=== PATIENT | male | born 1960 | race Caucasian/White ===

== ENCOUNTER 2024-02-03 08:02 | Observation (INO) | payer OTHER ==
[~2024-02-03] VITALS: Ht 177.8 cm; Wt 65.8 kg
[~2024-02-03 08:02] MED LIST: AMOX1TAB16 PO; METR-172 PO
[2024-02-03 11:45] VITALS: BP 136/96; PULSE 81; RESP 20
[2024-02-03 13:12] VITALS: O2SAT 96
[2024-02-03] MEDS: THIAMINE HCL 100 MG, FOLIC ACID 1 MG, M.V.I. IV [ADULT] 10 ML in 0.9%NACL 1000ML 1,000 ML IV SCH (13:30)
[2024-02-03] MEDS ORDERED: PHARMACY COMMUNICATION MISC PRN (13:30)
[2024-02-03] MEDS ORDERED: LORAZEPAM 2 MG/ML 1 ML VIAL IVP PRN (13:30)
[2024-02-03 16:00] VITALS: BP 135/99; PULSE 94; RESP 18
[2024-02-03 19:15] VITALS: O2SAT 96
[2024-02-03 20:00] VITALS: BP 123/81; PULSE 88; RESP 18
[2024-02-03] MEDS: CHLORDIAZEPOXIDE HCL 25 MG CAP PO PRN (21:11)
[2024-02-04] VITALS (21 sets, daily range): BP systolic 98–146; BP diastolic 63–93; PULSE 75–95; RESP 14–20; O2SAT 96
[2024-02-04 02:57] LABS: BASOPHILS # (AUTO) 0.15 K/uL (0.00-0.20); BASOPHILS % (AUTO) 1.4 % (0.0-5.0); EOSINOPHILS # (AUTO) 0.12 K/uL (0.00-0.70); EOSINOPHILS % (AUTO) 1.1 % (0.0-8.0); HEMATOCRIT 32.9 % (42-54); IMMATURE GRANULOCYTE ABSOLUTE 0.05 K/uL (0-1); LYMPHOCYTES # (AUTO) 1.9 K/uL (1.0-4.8); LYMPHOCYTES % (AUTO) 17.4 % (21.0-51.0); MEAN CORPUSCULAR HEMOGLOBIN 28.6 pg (27.0-33.0); MEAN CORPUSCULAR HGB CONC 32.8 g/dL (32.0-36.0); MONOCYTES # (AUTO) 1.2 K/uL (0.1-1.0); MONOCYTES % (AUTO) 11.5 % (3.0-13.0); NEUTROPHILS # (AUTO) 7.3 K/uL (1.8-7.7); NEUTROPHILS % (AUTO) 68.1 % (40.0-77.0); PLATELET COUNT (AUTO) 242 K/uL (130-400); RED BLOOD CELL COUNT(AUTO) 3.78 MIL/uL (4.50-6.20); RED CELL DISTRIBUTION WIDTH 16.5 % (11.0-15.5); WHITE BLOOD COUNT (AUTO) 10.7 K/uL (4.8-10.8)
[2024-02-04 03:23] LABS: ALBUMIN 1.7 g/dL (3.5-5.0); BILIRUBIN,TOTAL 0.4 mg/dL (0.2-1.0); CREATININE 0.7 mg/dL (0.5-1.5); POTASSIUM 3.3 mmol/L (3.5-5.1); TOTAL PROTEIN, SERUM 4.8 g/dL (6.0-8.3)
[2024-02-04 03:44] LABS: PROTHROMBIN TIME 11.6 SEC (9.6-11.6)
[2024-02-04 03:45] LABS: PARTIAL THROMBOPLASTIN TIME 25.9 SEC (26.3-35.5)
[2024-02-04] MEDS ORDERED: POTASSIUM CHLORIDE 20MEQ/100ML 100 ML IV PRN (10:00)
[2024-02-04] MEDS ORDERED: MAGNESIUM 2GM PREMIX 50ML 50 ML IV PRN (10:00)
[2024-02-04] MEDS ORDERED: KETAMINE 50MG/ML SYRINGE 50 MG/ML DISP.SYRIN ONE (10:21)
[2024-02-04] MEDS ORDERED: SUCCINYLCHOLINE CHLORIDE 20 MG/ML 10 ML VIAL ONE (10:23)
[2024-02-04] MEDS ORDERED: PROPOFOL 10 MG/ML 20ML VIAL IV ONE (10:23)
== END 2024-02-04 17:25 | disposition home or self-care (01) ==
LOC: INTOOBSV 11:49 → 4AH 11:49
PROVIDERS: ADMIT Family Medicine; ATTEND Family Medicine
DX: K92.2 Gastrointestinal hemorrhage, unspecified (principal); E43 Unspecified severe protein-calorie malnutrition; F30.9 Manic episode, unspecified; K64.9 Unspecified hemorrhoids; I10 Essential (primary) hypertension; E87.6 Hypokalemia; F10.20 Alcohol dependence, uncomplicated; F17.210 Nicotine dependence, cigarettes, uncomplicated; Z68.20 Body mass index [BMI] 20.0-20.9, adult; Z97.8 Presence of other specified devices; Y83.8 Other surgical procedures as the cause of abnormal reaction of the patient, or of later complication, without mention of misadventure at the time of the procedure; Y90.9 Presence of alcohol in blood, level not specified
CPT/HCPCS: 96365; 96366 ×2; 80053; 85025; 85610; 85730; 36415; 43235; J7030 ×3; J3411 ×2; J3490 ×2; G0378 ×3; J2704; A4620; A4215; A4223; A4222; A4606; G0379; J0330